=== PATIENT | male | born 1955 | race Caucasian/White ===

== ENCOUNTER 2018-11-04 10:26 | Inpatient (IN) | payer MEDICARE, OTHER ==
[~2018-11-04] VITALS: Ht 180.3 cm; Wt 85.6 kg
--- NOTE | 2018-11-04 10:58 | STROKE ---
Date/Time of Note Date/Time of Note DATE: 11/04/18 TIME: 10:57 Patient Information General Patient location: emergency Arrival Date Age 63 Gender male Weight POC Glucose Glucose Result Bedside Glucose - 72 Hours Test 11/04/18 10:53 Bedside Glucose 114 mg/dL (70-220) History & Physical History of Present Illness 0900 PST left facial droop and mild hemiparesis. NCHCT with old infarct in right MCA territory. Patient reports a stroke 2 weeks. On coumadin. Patient reports feeling "hot" today, which is the way he felt last time he had a stroke. He reports left hemiparesis since his old stroke, using a cane to walk tince his stroke. NIH Stroke Scale NIH Stroke Scale [id number] Total Score: [id number] Date/Time Recorded DATE: 11/04/18 TIME: 10:57 Submitted By Shahab Zavala t-PA Imaging Review Date/Time Imaging Reviewed DATE: 11/04/18 TIME: 10:57 t-PA Administration Weight Recommedation submitted by Shahab Zavala Recommendations Recommendation 63 M with right MCA stroke 2 weeks ago with left hemiparesis and dysarthria since. On coumadin now. Had sensation of hotness today, which preceded his stroke too. No new focal neuro symptoms. Possible recrudescence os stroke symptoms in setting of toxic/metabolic/infectious/physiologic insult. Low suspicion for new stroke given no new focal deficits. Not tPA candidate regar dless due to recent significant stroke. - Agree with toxic/metabolic/infectious work-up - Agree with following-up INR to ensure at goal for stroke prevention - Further care per [facility] Neurology team vs [facility] (patient's primary Neurology team) SHAHAB ZAVALA MD Nov 04, 2018 10:58
--- NOTE | 2018-11-04 11:27 | ERD ---
ER Documentation Chief Complaint Chief Complaint FACIAL DROOP AND WEAKNESS. LKWT [id number] HPI 63-year-old male presents by paramedics for left-sided weakness. Patient was in his normal state of health until last week at which time he dev eloped a stroke that was treated at the [facility]. He had similar symptoms at that time with a facial droop and left upper extremity weakness. According to the patient, he continued to walk with a cane after the stroke and did not have complete resolution of either his facial symptoms or his weakness. At 955 this morning, he stated he felt "warm" which were similar symptoms to what he had lester or to his previous stroke. He then called the paramedics. 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 Pre-hospital vital signs were reviewed. Pre-hospital diagnostic tests were reviewed. Upon arrival, it was unclear if his symptoms were new or old and a code stroke was initiated. However further history is that his symptoms that were new included only the "warmth" and he had no new focal weakness or numbness. ROS All systems reviewed and are negative except as per history of present illness. PMhx/Soc History of Surgery: No Anesthesia Reaction: No Hx Neurological Disorder: Yes (CVA) Hx Respiratory Disorders: No Hx Cardiac Disorders: Yes (HTN) Hx Psychiatric Problems: No Hx Miscellaneous Medical Probl: No Hx Substance Use: No Hx Tobacco Use: Yes Smoking Status: Current every day smoker FmHx Noncontributory for chief complaint Physical Exam Vitals Vital Signs Date Temp Pulse Resp B/P (MAP) Pulse Ox O2 O2 Flow FiO2 Time Delivery Rate 11/04/18 97.7 86 16 117/65 98 11:16 (82) 11/04/18 Nasal 2 10:59 Cannula 11/04/18 Nasal 2.0 10:59 Cannula Physical Exam GENERAL: The patient is well developed and appropriate for usual state of health in no apparent distress HEENT: Pupils equal, round, and reactive to light. EOMI. There is no scleral icterus. NECK: C-spine is soft and supple, there is no meningismus. There is no cervical lymphadenopathy. LUNGS: Clear to auscultation bilaterally. There are no rales, wheezes or rhonchi. HEART: Regular rate and rhythm, no murmurs, clicks, rubs or gallops. ABDOMEN: Soft, non-tender, non-distended. There are bowel sounds in all four quadrants. No rebound or guarding. EXTREMITIES: There is no peripheral cyanosis or edema. No focal swelling or erythema. NEURO: Patient is awake alert and oriented. He has fluent speech and normal comprehension. He has no visual acuity deficit. He has a left-sided facial droop. He has slight pronator drift in the left upper extremity compared to the right upper extremity. He has no drift or weakness on both lower extremities. Sensory exam is grossly nonfocal. Finger to nose is normal bilaterally. SKIN: There is no apparent rash or petechiae. HEME/LYMPHATIC: There is no evidence of excessive bruising or lymphedema. PSYCHIATRIC: The patient does not appear anxious or depressed. Result Diagram: 11/04/18 1039 11/04/18 1039 Results 24 hrs Laboratory Tests Test 11/04/18 10:39 11/04/18 10:53 White Blood Count 6.7 10^3/ul Red Blood Count 5.19 10^6/ul Hemoglobin 14.6 g/dl Hematocrit 45.3 % Mean Corpuscular Volume 87.3 fl Mean Corpuscular Hemoglobin 28.1 pg Mean Corpuscular Hemoglobin Concent 32.2 g/dl Red Cell Distribution Width 12.8 % Platelet Count 160 10^3/UL Mean Platelet Volume 10.4 fl Immature Granulocytes % 0.300 % Neutrophils % 64.7 % Lymphocytes % 28.0 % Monocytes % 4.6 % Eosinophils % 1.8 % Basophils % 0.6 % Nucleated Red Blood Cells % 0.0 /100WBC Immature Granulocytes # 0.020 10^3/ul Neutrophils # 4.3 10^3/ul Lymphocytes # 1.9 10^3/ul Monocytes # 0.3 10^3/ul Eosinophils # 0.1 10^3/ul Basophils # 0.0 10^3/ul Nucleated Red Blood Cells # 0.0 10^3/ul Prothrombin Time 20.1 Sec Prothrombin Time Ratio 1.6 INR International Normalized Ratio 1.70 Activated Partial Thromboplast Time 39.8 Sec Sodium Level 141 mmol/L Potassium Level 3.8 mmol/L Chloride Level 103 mmol/L Carbon Dioxide Level 29 mmol/L Anion Gap 9 Blood Urea Nitrogen 23 mg/dl Creatinine 1.06 mg/dl Est Glomerular Filtrat Rate mL/min > 60 mL/min Glucose Level 115 mg/dl Hemoglobin A1c 5.9 % Calcium Level 9.8 mg/dl Creatine Kinase 142 IU/L Creatine Kinase Index 3.1 Creatinine Kinase MB (Mass) 4.34 ng/ml Troponin I < 0.012 ng/ml Triglycerides Level 66 mg/dl Cholesterol Level 138 mg/dl LDL Cholesterol, Calculated 84 mg/dl HDL Cholesterol 41 mg/dl Cholesterol/HDL Ratio 3.3 RATIO Ethyl Alcohol Level < 10.0 mg/dl Bedside Glucose 114 mg/dL Current Medications Medications Dose Sig/Radha Start Time Status Last (Trade) Ordered Route PRN Stop Time Admin Dose Reason Admin Aspirin 325 mg ONCE ONCE 11/04/18 11/04/18 (Aspirin) PO 11:30 11/04/18 11:19 11:31 Procedures/MDM Patient was taken to a room, seen and evaluated. Comfort measures were initiated. Code stroke was initiated upon arrival Diagnostic tests were ordered and reviewed. 3 LEAD RHYTHM STRIP: Normal sinus rhythm without ectopy EK lead EKG reviewed by myself: Normal Sinus Rhythm Left axis deviation, right bundle branch block Nonspecific ST and T wave changes without ST elevation Impression: Nonspecific EKG RADIOLOGY: Reviewed with the radiologist CONSULTATION: Hospitalist was notified for admission Tele-stroke neurologist had been notified and deemed in and evaluated the patient. Their consult was appreciated. REEVALUATION: 1120: Diagnostic tests were appreciated. Patient remained neurologically unchanged and arrangements were made for admission of the hospital MEDICAL DECISION MAKIN-year-old male presents the emergency department with questionable symptoms consistent with a previous stroke. Initial presentation was concerning for an acute stroke, but recurrent history from the patient is that his symptoms are unchanged from his prior stroke. Although his initial last known well time was initially thought to be 955, as his symptoms are persistent from his previous stroke, his last known well time is at least 2 weeks ago. He is therefore deemed not a candidate for TPA or other intravascular intervention at this time. Patient has been provided with aspirin and is already on his anticoagulants. He will be admitted to the hospital for further observation and management. Departure Diagnosis: Primary Impression: Acute weakness Condition: CLAU Villarreal Nov 04, 2018 11:27
[2018-11-04] MEDS ORDERED: ASPIRIN 325 MG TAB PO ONE (11:30)
[2018-11-04 12:29] VITALS: Ht 180.3 cm; Wt 85.6 kg
[2018-11-04 12:30] VITALS: BP 112/70; PULSE 98; RESP 20
[2018-11-04 12:44] VITALS: PULSE 80
--- NOTE | 2018-11-04 12:57 | HP ---
Date/Time of Note Date/Time of Note DATE: 11/04/18 TIME: 12:56 Assessment/Plan VTE Prophylaxis SCD applied (from Nsg): Yes Pharmacological prophylaxis: other Lines/Catheters IV Catheter Type (from Nrsg): Saline Lock Assessment/Plan Hospital Course Assessment and plan: 63-year-old male with left-sided weakness symptoms, similar symptoms to recent diagnosis of stroke 2 weeks ago. #Left-sided weakness symptoms: Again per neurology assessment today earlier this appears to be because of possible recrudescence os stroke symptoms in setting of toxic/metabolic/infectious/physiologic insult. They stated there was low suspicion for new stroke given no new focal deficits. -Admit patient, check TSH A1c lipid panel -Go ahead and get PT, OT, speech therapy eval's, check 2D echocardiogram, carotids, MRI brain -Neurochecks every 4 hours, high-dose aspirin, consider statin, allow for permissive hypertension #Recent stroke: -Occurred 2 weeks ago with similar left-sided symptoms -See above #Possible heart arrhythmia-patient does not specify what kind of heart issue has, but states he has been taking Coumadin for years -We will today INR 1.7, we will try to obtain medical records from MD to see exactly why patient taking Coumadin -We do not know the dose of the Coumadin so we will hold off on this until we have further information from the medical records #Smoker: Counseled on cessation -Start low-dose nicotine patch #HTN: Again allowing for permissive hypertension at this time Result Diagram: 11/04/18 1039 11/04/18 1039 Results 24hrs Laboratory Tests Test 11/04/18 10:39 11/04/18 10:53 White Blood Count 6.7 Red Blood Count 5.19 Hemoglobin 14.6 Hematocrit 45.3 Mean Corpuscular Volume 87.3 Mean Corpuscular Hemoglobin 28.1 L Mean Corpuscular Hemoglobin Concent 32.2 Red Cell Distribution Width 12.8 Platelet Count 160 Mean Platelet Volume 10.4 Immature Granulocytes % 0.300 Neutrophils % 64.7 Lymphocytes % 28.0 Monocytes % 4.6 Eosinophils % 1.8 Basophils % 0.6 Nucleated Red Blood Cells % 0.0 Immature Granulocytes # 0.020 Neutrophils # 4.3 Lymphocytes # 1.9 Monocytes # 0.3 Eosinophils # 0.1 Basophils # 0.0 Nucleated Red Blood Cells # 0.0 Prothrombin Time 20.1 H Prothrombin Time Ratio 1.6 INR International Normalized Ratio 1.70 Activated Partial Thromboplast Time 39.8 H Sodium Level 141 Potassium Level 3.8 Chloride Level 103 Carbon Dioxide Level 29 Anion Gap 9 Blood Urea Nitrogen 23 H Creatinine 1.06 Est Glomerular Filtrat Rate mL/min > 60 Glucose Level 115 Hemoglobin A1c 5.9 Calcium Level 9.8 Creatine Kinase 142 Creatine Kinase Index 3.1 Creatinine Kinase MB (Mass) 4.34 H Troponin I < 0.012 Triglycerides Level 66 Cholesterol Level 138 LDL Cholesterol, Calculated 84 HDL Cholesterol 41 Cholesterol/HDL Ratio 3.3 Ethyl Alcohol Level < 10.0 H Bedside Glucose 114 HPI/ROS Admit Date/Time Admit Date/Time Nov 04, 2018 at 11:13 Hx of Present Illness 63-year-old male past medical history of recent stroke 2 weeks ago with left- sided weakness symptoms, smoker, hypertension, who presents again with acute onset of left-sided weakness symptoms. Per patient, 2 weeks ago he developed a stroke that was treated at the [facility]. He had similar symptoms at that time with a facial droop and left upper extremity weakness. Patient now walks w ith a cane after the stroke and did not have complete resolution of either his facial symptoms or his weakness. Today in the morning, he stated he felt "warm" which were similar symptoms to what he had prior to his previous stroke. EMS was called. When patient arrived he had head CT: Shows: Subacute ischemic changes involving the right insula and temporal stem. Evidence of old prior infarcts involving the ventral right temporal lobe and right basal ganglia. Patient was seen by telemetry neurologist today in the ER and the decision was made to not start the patient on TPA, because of possible recrudescence os stroke symptoms in setting of toxic/metabolic/infectious/physiologic insult. They stated there was low suspicion for new stroke given no new focal deficits. Of note patient states he takes Coumadin for many years for "heart issue", but cannot further specify exactly why. PMH/Family/Social Past Medical History Coded Allergies: Unknown: Unable to obtain (Unverified , 11/04/18) Social History Smoking Status: Current some day smoker Exam/Review of Systems Vital Signs Vitals Vital Signs Date Temp Pulse Resp B/P (MAP) Pulse Ox O2 O2 Flow FiO2 Time Delivery Rate 11/04/18 Nasal 2.0 12:48 Cannula 11/04/18 97.6 98 20 112/70 97 12:30 (84) Exam Exam GENERAL: Lying in bed, no acute distress HEENT: Pupils equal, round, and reactive to light. EOMI. NECK: C-spine is soft and supple LUNGS: Clear to auscultation bilaterally. There are no rales, wheezes or rhonchi. HEART: Regular rate and rhythm, no murmurs, clicks, rubs or gallops. ABDOMEN: Soft, non-tender, non-distended. There are bowel sounds in all four quadrants. No rebound or guarding. EXTREMITIES: No lower exam edema bilaterally NEURO: Patient is awake alert and oriented. He has fluent speech and normal comprehension. He has no visual acuity deficit. He has a left-sided facial droop. He has slight pronator drift in the left upper extremity compared to the right upper extremity. He has no drift or weakness on both lower extremities. Sensory exam is grossly nonfocal. Finger to nose is normal bilaterally. ROD LAI Nov 04, 2018 12:57
[2018-11-04] MEDS ORDERED: LORAZEPAM 2 MG INJ IV PRN (13:00)
[2018-11-04] MEDS ORDERED: HYDROCODONE/APAP (5/325) TAB PO PRN (13:00)
[2018-11-04] MEDS ORDERED: hydrALAzine 20 MG INJ IV PRN (13:00)
[2018-11-04] MEDS ORDERED: ALBUTEROL/IPRATROPIUM (NEB) 3 ML AMP HHN PRN (13:00)
[2018-11-04] MEDS ORDERED: morphine 2 MG INJ IV PRN (13:00)
[2018-11-04] MEDS ORDERED: NITROGLYCERIN (SL) 0.4 MG TAB SL PRN (13:00)
[2018-11-04] MEDS ORDERED: MAGNESIUM HYDROXIDE 30ML CUP PO PRN (13:00)
[2018-11-04] MEDS ORDERED: DOCUSATE SODIUM 100 MG CAP PO PRN (13:00)
[2018-11-04] MEDS ORDERED: NACL 0.9% 3 ML SYG IV SCH (13:00)
[2018-11-04] MEDS ORDERED: ACETAMINOPHEN 325 MG TAB PO PRN (13:00)
[2018-11-04] MEDS ORDERED: ONDANSETRON 4 MG INJ IV PRN (13:00)
[2018-11-04] MEDS: SOD CHLORIDE 0.45% 1,000 ML IV SCH (13:33)
[2018-11-04 16:00] VITALS: PULSE 56
[2018-11-04 19:49] VITALS: BP 109/68; PULSE 62; RESP 18
[2018-11-04 20:00] VITALS: PULSE 83
[2018-11-04] MEDS: FAMOTIDINE 20 MG TAB PO SCH (20:10)
[2018-11-04 23:30] VITALS: BP 99/58; PULSE 83; RESP 18
[2018-11-05] VITALS: PULSE 98
[2018-11-05] MEDS: SOD CHLORIDE 0.45% 1,000 ML IV SCH (02:39)
[2018-11-05 03:45] VITALS: BP 101/61; PULSE 81; RESP 18
[2018-11-05 04:00] VITALS: PULSE 100
[2018-11-05 07:22] VITALS: BP 119/76; PULSE 87; RESP 17
[2018-11-05] MEDS: FAMOTIDINE 20 MG TAB PO SCH (08:23)
[2018-11-05] MEDS ORDERED: ASPIRIN (EC) 325 MG TAB PO SCH (09:00)
[2018-11-05 09:06] VITALS: PULSE 86
[2018-11-05 11:20] VITALS: BP 131/80; PULSE 87; RESP 17
--- NOTE | 2018-11-05 11:46 | CONS ---
Assessment/Plan Assessment/Plan Hospital Course 63 yo M with hx of recent stroke 2 weeks ago, DM and other comorbidities who p/w L sided weakness and L facial droop... for which neurology is consulted. Perhaps recrudescence of prior stroke sx in the context of an acute medical abnl Acute on subacute infarction is possible... MRI brain is notable for acute to subacute R insular and R temporal lobe infarcts, as well as chronic infarcts. MRI brain is notable for the same. CUS is unrevealing. P: Obtain CTA H/N for further characterization Await echo, EKG Add ESR, RPR Cont ASA/Lipitor for secondary stroke prevention Cont BP and medical management per primary PT/OT/ST as tolerated Will follow clinically Result Diagram: 11/05/18 0510 11/05/18 0510 Results 24hrs Laboratory Tests Test 11/04/18 13:40 11/04/18 19:22 11/05/18 05:10 Creatine Kinase 121 105 Creatine Kinase Index 3.3 3.2 Creatinine Kinase MB (Mass) 3.98 H 3.41 H Troponin I < 0.012 < 0.012 White Blood Count 5.7 Red Blood Count 4.93 Hemoglobin 13.9 L Hematocrit 42.8 Mean Corpuscular Volume 86.8 Mean Corpuscular Hemoglobin 28.2 L Mean Corpuscular Hemoglobin Concent 32.5 Red Cell Distribution Width 12.9 Platelet Count 163 Mean Platelet Volume 10.6 H Immature Granulocytes % 0.200 Neutrophils % 62.3 Lymphocytes % 29.5 Monocytes % 5.4 Eosinophils % 2.1 Basophils % 0.5 Nucleated Red Blood Cells % 0.0 Immature Granulocytes # 0.010 Neutrophils # 3.6 Lymphocytes # 1.7 Monocytes # 0.3 Eosinophils # 0.1 Basophils # 0.0 Nucleated Red Blood Cells # 0.0 Prothrombin Time 13.8 # Prothrombin Time Ratio 1.1 INR International Normalized Ratio 1.05 Sodium Level 139 Potassium Level 3.9 Chloride Level 104 Carbon Dioxide Level 29 Anion Gap 6 Blood Urea Nitrogen 22 H Creatinine 1.00 Est Glomerular Filtrat Rate mL/min > 60 Glucose Level 88 Hemoglobin A1c 6.0 H Calcium Level 9.3 Phosphorus Level 4.5 Magnesium Level 2.0 Triglycerides Level 86 Cholesterol Level 124 LDL Cholesterol, Calculated 72 HDL Cholesterol 35 Cholesterol/HDL Ratio 3.5 Thyroid Stimulating Hormone (TSH) 0.155 L Consultation Date/Type/Reason Admit Date/Time Nov 04, 2018 at 11:13 Type of Consult Neurology Reason for Consultation eval for stroke Requesting Provider: ROD LAI Date/Time of Note DATE: 11/05/18 TIME: 11:46 Hx of Present Illness Hx of Present Illness 63-year-old male past medical history of recent stroke 2 weeks ago with left- sided weakness symptoms, smoker, hypertension, who presents again with acute onset of left-sided weakness symptoms. Per patient, 2 weeks ago he developed a stroke that was treated at the [facility]. He had similar symptoms at that time with a facial droop and left upper extremity weakness. Patient now walks with a cane after the stroke and did not have complete resolution of either his facial symptoms or his weakness. Today in the morning, he stated he felt "warm" which were similar symptoms to what he had prior to his previous stroke. EMS was called. When patient arrived he had head CT: Shows: Subacute ischemic changes involving the right insula and temporal stem. Evidence of old prior infarcts involving the ventral right temporal lobe and right basal ganglia. Patient was seen by telemetry neurologist today in the ER and the decision was made to not start the patient on TPA, because of possible recrudescence os stroke symptoms in setting of toxic/metabolic/infectious/physiologic insult. They stated there was low suspicion for new stroke given no new focal deficits. Of note patient states he takes Coumadin for many years for "heart issue", but cannot further specify exactly why. negative unless noted otherwise in HPI Exam/Review of Systems Vital Signs Vitals Vital Signs Date Temp Pulse Resp B/P (MAP) Pulse Ox O2 O2 Flow FiO2 Time Delivery Rate 11/05/18 98.3 87 17 131/80 97 11:20 (97) 11/05/18 Nasal 2.0 08:00 Cannula Intake and Output 11/04/18 11/04/18 11/05/18 1515:00 23:00 07:00 IntakeIntake Total 400 ml 1200 ml OutputOutput Total 500 ml 250 ml BalanceBalance -100 ml 950 ml Exam PE: Gen Appearance: No Apparent Distress HEENT: Normocephalic Cardiovascular: Regular rate Lungs: Clear bilaterally Abdomen: Soft Extremities: Dry NE: The patient was alert and oriented.. Language was normal. Fund of knowledge was normal. Pupils were equal and reactive to light. There was no afferent pupillary defect. Visual weiner were normal. Funduscopic examination showed sharp disc margins and spontaneous venous pulsations. Extra-ocular movements were full. Ptosis was absent. There was no nystagmus. Facial sensation was normal. Face was asymmetric with diminished activation on the L. Hearing was intact. Palate movements were normal. Neck strength was normal. There was normal tongue bulk and speed of movement. Tone was normal. Muscle bulk was normal. I did not see fasciculations. Arms and legs were strong. Vibration sensation was normal. Temperature and pinprick sensation was normal. Rapid alternating movements were normal. There was no dysmetria. There was no intention tremor. Gait was steady when ambulating with a 4-pt cane. Arm and leg reflexes were 2+ and symmetric. Naylor's sign was absent. Plantar responses were flexor. Medications Medications Current Medications IV Flush (NS 3 ml) 3 ml PER PROTOCOL IV ; Start 11/04/18 at 13:00 Ondansetron HCl (Zofran Inj) 4 mg Q6H PRN IV NAUSEA AND/OR VOMITING; Start 11/04/18 at 13:00 Acetaminophen (Tylenol Tab) 650 mg Q6H PRN PO PAIN LEVEL 1-3 OR FEVER; Start 11/04/18 at 13:00 Acetaminophen/ Hydrocodone Bitart ([place] (5/325)) 1 tab Q6H PRN PO MODERATE PAIN LEVEL 4-6; Start 11/04/18 at 13:00 Morphine Sulfate (morphine) 2 mg Q4H PRN IV SEVERE PAIN LEVEL 7-10; Start 11/04/18 at 13:00 Docusate Sodium (Colace) 100 mg Q12H PRN PO CONSTIPATION; Start 11/04/18 at 13:00 Magnesium Hydroxide (Milk Of Mag) 30 ml DAILY PRN PO CONSTIPATION; Start 11/04/18 at 13:00 Famotidine (Pepcid) 20 mg Q12 PO Last administered on 11/05/18at 08:23; Admin Dose 20 MG; Start 11/04/18 at 21:00 Sodium Chloride 1,000 ml @ 75 mls/hr [id number] IV Last administered on 11/05/18at 02:39; Admin Dose 75 MLS/HR; Start 11/04/18 at 12:52 Lorazepam (Ativan) 0.5 mg Q6H PRN IV ANXIETY; Start 11/04/18 at 13:00 Albuterol/ Ipratropium (Duoneb) 3 ml Q4H RESP THERAPY PRN HHN SHORTNESS OF BREATH; Start 11/04/18 at 13:00 Hydralazine HCl (Apresoline) 10 mg Q6H PRN IV ELEVATED BLOOD PRESSURE; Start 11/04/18 at 13:00 Nitroglycerin (Nitroglycerin (Sl Tab) 0.4 Mg) 1 tab Q5M PRN SL ANGINA; Start 11/04/18 at 13:00 Aspirin (Ecotrin) 325 mg DAILY PO Last administered on 11/05/18at 08:23; Admin Dose 325 MG; Start 11/05/18 at 09:00 Imaging Imaging MRI brain reviewed: IMPRESSION: Acute to subacute infarct involving the right hernández radiata and caudate body, as well as temporal lobe. Findings are superimposed background of a more remote right MCA distribution infarct, as described above and in keeping with a clinical history. Age-related involutional and mild scattered chronic microvascular ischemic change. CTH reviewed: IMPRESSION: Subacute ischemic changes involving the right insula and temporal stem. Evidence of old prior infarcts involving the ventral right temporal lobe and right basal ganglia. CUS reviewed: IMPRESSION: 1. Less than 50% stenosis bilaterally in the internal carotid arteries. 2. Normal antegrade flow in the vertebral arteries bilaterally. Past Medical History reviewed Medications Current Medications IV Flush (NS 3 ml) 3 ml PER PROTOCOL IV ; Start 11/04/18 at 13:00 Ondansetron HCl (Zofran Inj) 4 mg Q6H PRN IV NAUSEA AND/OR VOMITING; Start 11/04/18 at 13:00 Acetaminophen (Tylenol Tab) 650 mg Q6H PRN PO PAIN LEVEL 1-3 OR FEVER; Start 11/04/18 at 13:00 Acetaminophen/ Hydrocodone Bitart ([place] (5/325)) 1 tab Q6H PRN PO MODERATE PAIN LEVEL 4-6; Start 11/04/18 at 13:00 Morphine Sulfate (morphine) 2 mg Q4H PRN IV SEVERE PAIN LEVEL 7-10; Start 11/04/18 at 13:00 Docusate Sodium (Colace) 100 mg Q12H PRN PO CONSTIPATION; Start 11/04/18 at 13:00 Magnesium Hydroxide (Milk Of Mag) 30 ml DAILY PRN PO CONSTIPATION; Start 11/04/18 at 13:00 Famotidine (Pepcid) 20 mg Q12 PO Last administered on 11/05/18at 08:23; Admin D ose 20 MG; Start 11/04/18 at 21:00 Sodium Chloride 1,000 ml @ 75 mls/hr [id number] IV Last administered on 11/05/18at 02:39; Admin Dose 75 MLS/HR; Start 11/04/18 at 12:52 Lorazepam (Ativan) 0.5 mg Q6H PRN IV ANXIETY; Start 11/04/18 at 13:00 Albuterol/ Ipratropium (Duoneb) 3 ml Q4H RESP THERAPY PRN HHN SHORTNESS OF BREATH; Start 11/04/18 at 13:00 Hydralazine HCl (Apresoline) 10 mg Q6H PRN IV ELEVATED BLOOD PRESSURE; Start 11/04/18 at 13:00 Nitroglycerin (Nitroglycerin (Sl Tab) 0.4 Mg) 1 tab Q5M PRN SL ANGINA; Start 11/04/18 at 13:00 Aspirin (Ecotrin) 325 mg DAILY PO Last administered on 11/05/18at 08:23; Admin Dose 325 MG; Start 11/05/18 at 09:00 Allergies: Coded Allergies: trazodone (Verified Allergy, Unknown, 11/05/18) Past Surgical History reviewed Social History reviewed Smoking Status: Current some day smoker CHAIM GALEANA NP Nov 05, 2018 11:46 CHACHO DAVIS Nov 05, 2018 17:45
--- NOTE | 2018-11-05 12:45 | DS ---
Date/Time of Note Date/Time of Note DATE: 11/05/18 TIME: 12:33 Discharge Summary Admission/Discharge Info Admit Date/Time Nov 04, 2018 at 11:13 Discharge Date/Time Nov 05, 2018 at 11:46 Discharge Diagnosis 1. 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 Possible heart arrhythmia, on coumadin, follow up with PCP 3. Smoker: Counseled on cessation 4. HTN, controlled 5. Patient signed AMA Patient Condition: Fair Hospital Course 63-year-old male past medical history of recent stroke 2 weeks ago with left-s ided weakness symptoms, smoker, hypertension, who presents again with acute onset of left-sided weakness symptoms. Per patient, 2 weeks ago he developed a stroke that was treated at the [facility]. He had similar symptoms at that time with a facial droop and left upper extremity weakness. Patient now walks with a cane after the stroke and did not have complete resolution of either his facial symptoms or his weakness. Today in the morning, he stated he felt "warm" which were similar symptoms to what he had prior to his previous stroke. EMS was called. CT scan and MRI of brain both showed subacute ischemic changes involving the right insula and temporal stem. Evidence of old prior infarcts involving the ventral right temporal lobe and right basal ganglia. Patient was seen by telemetry neurologist in the ER and the decision was made to not start the patient on TPA, Patient is on coumadin that he has been taking for many years for unclear reason, he is also put on aspirin. Patient signed AMA and left the hospital this morning before I see him. Home Meds Unable to Obtain Active Prescriptions or Reported Meds Follow-up Plan PCP/cardiology/neurology as soon as possible Primary Care Provider Care Physician No Primary Pending Labs Laboratory Tests Test 11/04/18 13:40 11/04/18 19:22 11/05/18 05:10 Creatine Kinase 121 IU/L (23-200) 105 IU/L (23-200) Creatine Kinase 3.3 3.2 Index Creatinine Kinase 3.98 3.41 MB (Mass) ng/ml (0.0-2.4) ng/ml (0.0-2.4) Troponin I < 0.012 < 0.012 ng/ml (0.000-0.120) ng/ml (0.000-0.120 ) White Blood Count 5.7 10^3/ul (4.8-10.8) Red Blood Count 4.93 10^6/ul (4.70-6.10 ) Hemoglobin 13.9 g/dl (14.0-18.0) Hematocrit 42.8 % (42.0-52.0) Mean Corpuscular 86.8 Volume fl (82.0-101.0) Mean Corpuscular 28.2 Hemoglobin pg (29.0-33.0) Mean Corpuscular 32.5 Hemoglobin Concent g/dl (32.0-37.0) Red Cell 12.9 % (11.5-14.5) Distribution Width Platelet Count 163 10^3/UL (140-415) Mean Platelet 10.6 fl (7.4-10.4) Volume Immature 0.200 Granulocytes % % (0.001-0.429) Neutrophils % 62.3 % (39.0-77.0) Lymphocytes % 29.5 % (15.0-51.0) Monocytes % 5.4 % (0.0-11.0) Eosinophils % 2.1 % (0.0-7.0) Basophils % 0.5 % (0.0-2.0) Nucleated Red Blood 0.0 Cells % /100WBC (0.0-0.0) Immature 0.010 Granulocytes # 10^3/ul (0.0-0.031 ) Neutrophils # 3.6 10^3/ul (1.6-7.5) Lymphocytes # 1.7 10^3/ul (0.8-2.9) Monocytes # 0.3 10^3/ul (0.3-0.9) Eosinophils # 0.1 10^3/ul (0.0-0.5) Basophils # 0.0 10^3/ul (0.0-0.1) Nucleated Red Blood 0.0 Cells # 10^3/ul (0.0-0.0) Prothrombin Time 13.8 Sec (11.9-14.9) Prothrombin Time 1.1 Ratio INR International 1.05 Normalized Ratio Sodium Level 139 mmol/L (135-144) Potassium Level 3.9 mmol/L (3.5-5.1) Chloride Level 104 mmol/L (97-110) Carbon Dioxide 29 mmol/L (21-31) Level Anion Gap 6 (5-13) Blood Urea 22 mg/dl (7-20) Nitrogen Creatinine 1.00 mg/dl (0.61-1.24) Est Glomerular > 60 mL/min (>60) Filtrat Rate mL/min Glucose Level 88 mg/dl (70-220) Hemoglobin A1c 6.0 % (0-5.9) Calcium Level 9.3 mg/dl (8.4-10.2) Phosphorus Level 4.5 mg/dl (2.5-4.9) Magnesium Level 2.0 mg/dl (1.7-2.5) Triglycerides 86 mg/dl (0-149) Level Cholesterol Level 124 mg/dl (100-200) LDL Cholesterol, 72 mg/dl Calculated HDL Cholesterol 35 mg/dl (30-78) Cholesterol/HDL 3.5 RATIO Ratio Thyroid Stimulating 0.155 Hormone (TSH) MIU/L (0.465-4.680 ) Microbiology Date/Time Source Procedure Growth Status 11/04/18 12:45 Nares MRSA Screen - Preliminary Screening in process Resulted DEBI STEPHENSON MD Nov 05, 2018 12:45
--- NOTE | 2018-11-05 17:50 | RADRPT ---
Echocardiogram Report Patient Name: YOLANDA KAY Gender: Male Date: 1955 Study Date: 05-Nov-2018 [employer] Teacher: Yara Fernández [facility] Location: [facility] [place] Ref. Physician: ROD LAI Quality: Adequate Procedures: Transthoracic echocardiogram with complete 2D, M-Mode, and doppler examination. Indications: Stroke. 2D/M Mode Doppler Measurement Value Normal Ranges Measurement Value Normal Ranges LVIDd 2D 5.6 3.5 - 5.6 cm AV Peak Panchito 1.4 m/sec LVIDs 2D 4.6 2.1 - 4.1 cm AV Peak PG 8.0 mmHg LVPWd 2D 1.1 0.6 - 1.1 cm LVOT Peak Panchito 0.7 m/sec IVSd 2D 1.1 0.6 - 1.1 cm LVOT Peak PG 2.0 mmHg AoR Diam 2D 2.9 2.0 - 3.7 cm MV E Peak Panchito 0.9 m/sec LA/Ao 2D 1 0 - 1 MV A Peak Panchito 0.3 m/sec LA Dimen 2D 3.9 2.3 - 4.0 cm MV E/A 2.8 MV Decel Time 162 msec Lat E` Panchito 0.0 m/sec Lateral E/E` 23.5 Med E` Panchito 0.1 m/sec MV E/A 2.8 TR Peak Panchito 1.7 m/sec TR Peak PG 12.0 mmHg RVSP 22.0 mmHg RA Pressure 10.0 Findings Left Ventricle: Left ventricle not well visualized. Mild concentric left ventricular hypertrophy. Mild enlargement of left ventricle cavity. Moderate left ventricular systolic dysfunction. Ejection fraction is visually estimated at 35 %. Tissue Doppler/Mitral Doppler indices are consistent with impaired relaxation (Stage I diastolic dysfunction). Multiple segmental wall motion abnormalities. Right Ventricle: Normal right ventricular size. Normal right ventricular systolic function. Left Atrium: The left atrium is normal in size. Right Atrium: The right atrium is normal in size. Mitral Valve: Normal appearance of the mitral valve. Mild mitral annular calcification. Trace mitral regurgitation. Aortic Valve: No significant aortic stenosis or insufficiency. Aortic cusps appear mildly calcified. Tricuspid Valve: Normal appearance of the tricuspid valve. Estimated peak PA systolic pressure 22 mmHg. There is trace tricuspid regurgitation. Pulmonic Valve: Pulmonic valve not well visualized. Pericardium: Normal pericardium with no significant pericardial effusion. Aorta: Normal aortic root. IVC: Normal size and normal respiratory collapse consistent with normal right atrial pressure. Conclusions Left ventricle not well visualized. Mild concentric left ventricular hypertrophy. Mild enlargement of left ventricle cavity. Moderate left ventricular systolic dysfunction. Ejection fraction is visually estimated at 35 %. Tissue Doppler/Mitral Doppler indices are consistent with impaired relaxation (Stage I diastolic dysfunction). Multiple segmental wall motion abnormalities. Normal appearance of the mitral valve. Mild mitral annular calcification. Trace mitral regurgitation. No significant aortic stenosis or insufficiency. Aortic cusps appear mildly calcified. Normal appearance of the tricuspid valve. Estimated peak PA systolic pressure 22 mmHg. There is trace tricuspid regurgitation. Normal pericardium with no significant pericardial effusion. Electronically Signed By: Juan Luis Majano 05-Nov-2018 17:49:25 -0800 Patient Name: YOLANDA KAY Study Date: 05-Nov-2018 [id number]
== END 2018-11-05 11:46 | disposition left against medical advice (07) | DRG 65 ==
LOC: E/R 10:26 → 6WM 11:13
PROVIDERS: ADMIT Hospitalist; ATTEND Hospitalist
DX: I63.9 Cerebral infarction, unspecified (principal); G81.94 Hemiplegia, unspecified affecting left nondominant side; I69.954 Hemiplegia and hemiparesis following unspecified cerebrovascular disease affecting left non-dominant side; I10 Essential (primary) hypertension; I69.910 Attention and concentration deficit following unspecified cerebrovascular disease; F17.200 Nicotine dependence, unspecified, uncomplicated; E11.9 Type 2 diabetes mellitus without complications; R29.810 Facial weakness
CPT/HCPCS: 36415; 70450; 70551; 71045; 80048; 80061; 80307; 82550; 82553; 82962; 83036; 83735; 84100; 84439; 84443; 84484; 85025; 85610; 85730; 87081; 92523; 92610; 93005; 93306; 93880; 97161; 97165